=== PATIENT | female | born 1980 ===

== ENCOUNTER 2017-12-16 11:13 | Outpatient (CLI) | payer OTHER | END 2017-12-16 11:25 | disposition home or self-care (01) | LOC: RAD 11:13 | DX: M06.842 Other specified rheumatoid arthritis, left hand (principal); M06.841 Other specified rheumatoid arthritis, right hand ==

== ENCOUNTER 2018-10-25 10:35 | Emergency (ER) | payer OTHER ==
[~2018-10-25] VITALS: Ht 160 cm; Wt 77.1 kg
== END 2018-10-25 14:18 | disposition home or self-care (01) ==
LOC: ER 10:35
DX: K11.21 Acute sialoadenitis (principal)